=== PATIENT | male | born 1990 | race African-American/Black ===

== ENCOUNTER 2017-10-09 21:54 | Emergency (ER) | payer OTHER, BC ==
[2017-10-09] MEDS ORDERED: ONDANSETRON ODT 4 MG TAB.RAPDIS. (22:31)
[2017-10-09] MEDS: IBUPROFEN 800 MG TABLET. PO (23:00)
[2017-10-09] MEDS: HYDROcodone/APAP 5/325MG 1 TAB TABLET PO (23:00)
[2017-10-09] MEDS: ONDANSETRON ODT 4 MG TAB.RAPDIS. PO (23:00)
== END 2017-10-09 23:10 | disposition home or self-care (01) ==
LOC: ER 21:54
DX: S39.012A Strain of muscle, fascia and tendon of lower back, initial encounter (principal); V43.52XA Car driver injured in collision with other type car in traffic accident, initial encounter; Y93.I9 Activity, other involving external motion; Y92.410 Unspecified street and highway as the place of occurrence of the external cause; Y99.8 Other external cause status
CPT/HCPCS: 72131; 99284-25; Q0162

== ENCOUNTER 2018-10-02 11:28 | Emergency (ER) | payer BC, OTHER ==
[~2018-10-02] VITALS: Ht 175.3 cm; Wt 102.1 kg
[~2018-10-02 11:28] MED LIST: HYDR-3164 PO; IBUP-1060 PO
[2018-10-02] MEDS ORDERED: LIDO:MAALOX 1:1 20 ML SINGLE DOSE. PO PRN (12:30)
--- NOTE | 2018-10-02 12:57 | RAD ---
Portable chest, 10/02/2018: History: Upper abdominal and chest pain The heart size and pulmonary vascularity are normal. The lungs are clear. There is no evidence of pleural fluid. IMPRESSION: No acute cardiopulmonary abnormality is detected.
[2018-10-02 13:13] LABS: BASO % 0 % (0-3); EOS % 1 % (0-3); HEMATOCRIT 45.9 % (39.0-53.0); HEMOGLOBIN 15.1 g/dL (13.0-17.5); LYMPH # 1.1 x10^3/uL (1.0-4.8); LYMPH % 26 % (24-48); MEAN CORPUSCULAR HEMOGLOBIN 27 pg (25-35); MEAN CORPUSCULAR HGB CONC 33 g/dL (31-37); MEAN CORPUSCULAR VOLUME 82 fL (79-100); MONO # 0.5 x10^3/uL (0.0-1.1); MONO % 11 % (0-9); NEUT # 2.7 x10^3uL (1.8-7.7); NEUT % 62 % (31-73); PLATELET COUNT 271 x10^3/uL (140-400); RED BLOOD COUNT 5.63 x10^6/uL (4.30-5.70); RED CELL DISTRIBUTION WIDTH 14.7 % (11.5-14.5); WHITE BLOOD COUNT 4.3 x10^3/uL (4.0-11.0)
--- NOTE | 2018-10-02 13:13 | EKG ---
[facility] [address] [place] [address] Test Date: 2018-10-02 Test Time: 12:44:08 Pat Name: REGINA SNOWDEN Department: Room: Gender: M [employer]: : 1990 Requested By: GUICHO CHEW Order Number: [id number] Reading MD: Eddie Cross Measurements Intervals [place] Rate: 68 P: 24 IN: 186 QRS: 45 QRSD: 82 T: 0 QT: 376 QTc: 404 Interpretive Statements SINUS RHYTHM NON SPECIFIC ST-T ABNORMALITY (ELEVATION) OTHERWISE NORMAL ECG No previous ECG available for comparison Electronically Signed On 10-07-2018 15:17:04 ENTRY CLERK by Eddie Cross
--- NOTE | 2018-10-02 13:23 | PHYS DOC ---
Past Medical History Past Medical History: No Pertinent History Past Surgical History: Other Additional Past Surgical Histo: ARTHROSCOPY OF BILATERAL KNEES AND FOOT. Alcohol Use: None Drug Use: None Adult General Chief Complaint Chief Complaint: GI PROBLEM HPI HPI 28-year-old male presenting to the emergency department today with epigastric abdominal pain for the past 2 days. He's had one episode of nonbloody nonbilious emesis. His pain is a sharp shooting pain that does not radiate and has no alleviating or exacerbating factors. It is not worse or better with food. Patient does not have diabetes hypertension hyperlipidemia. Nonsmoker. He denies unilateral leg swelling hemoptysis personal or family history of blood clotting disorders or recent immobilization. Review of systems is positive for intermittent chest pain, negative for fevers chills or changes in bowel or bladder habits. He has intermittently felt mildly nauseous. All other review of systems is negative unless otherwise noted in history of present illness. ED course: 28-year-old male presenting to the emergency department today with epigastric abdominal pain with intermittent nausea. On arrival the patient's vital signs are within normal limits. EKG obtained and reviewed by myself shows sinus rhythm with a regular rate. No previous EKG for comparison. ST segments show mild elevation in the lateral leads with upwards concavity. Not suggestive of ACS. Nonspecific T-wave inversion in lead 3. Abdomen is soft and nontender. Negative McBurney's point. Negative Mendoza sign. Blood work sent. Chest x-ray obtained which was unremarkable. Ultrasound of the gallbladder is negative for acute pathology. Workup here is unremarkable.The patient has been examined and was not found to have an emergency medical condition. The patient was then discharged home in stable condition to follow up with their primary care physician over the next 1-2 days. They were to return if their symptoms worsened or if they were concerned for any reason. They were also instructed to return to the emergency department if they were unable to get the recommended and appropriate follow-up. [id number] discharge instructions and return precautions were given. Patient's questions were answered to their satisfaction. Patient is comfortable with plan. Review of Systems Review of Systems SEE ABOVE. Current Medications Current Medications Current Medications Medications (Trade) Dose Ordered Sig/Froylan Start Time Stop Time Status Last Admin Dose Admin Multi-Ingredient Mouthwash/Gargle (Gi Cocktail) 20 ml PRN Q15MIN PRN 10/02/18 12:30 10/02/18 12:37 20 ML Allergies Allergies Allergies Coded Allergies Type Severity Reaction Last Updated Verified No Known Drug Allergies 10/09/17 No Physical Exam Physical Exam SEE ABOVE Constitutional: Well developed, well nourished, no acute distress, non-toxic appearance. [] HENT: Normocephalic, atraumatic, bilateral external ears normal, oropharynx moist, no oral exudates, nose normal. [] Eyes: PERRLA, EOMI, conjunctiva normal, no discharge. [] Neck: Normal range of motion, no tenderness, supple, no stridor. [] Cardiovascular:Heart rate regular rhythm, no murmur [] Lungs & Thorax: Bilateral breath sounds clear to auscultation [] Abdomen: Bowel sounds normal, soft, no tenderness, no masses, no pulsatile masses. [] Skin: Warm, dry, no erythema, no rash. [] Back: No tenderness, no CVA tenderness. [] Extremities: No tenderness, no cyanosis, no clubbing, ROM intact, no edema. [] Neurologic: Alert and oriented X 3, normal motor function, normal sensory function, no focal deficits noted. [] Psychologic: Affect normal, judgement normal, mood normal. [] Current Patient Data Vital Signs Vital Signs Date Time Temp Pulse Resp B/P (MAP) Pulse Ox O2 Delivery O2 Flow Rate FiO2 10/02/18 12:00 98.3 73 14 134/91 (105) 100 Room Air 98.3 Lab Values Laboratory Tests Test 10/02/18 12:56 White Blood Count 4.3 x10^3/uL (4.0-11.0) Red Blood Count 5.63 x10^6/uL (4.30-5.70) Hemoglobin 15.1 g/dL (13.0-17.5) Hematocrit 45.9 % (39.0-53.0) Mean Corpuscular Volume 82 fL (79-100) Mean Corpuscular Hemoglobin 27 pg (25-35) Mean Corpuscular Hemoglobin Concent 33 g/dL (31-37) Red Cell Distribution Width 14.7 % (11.5-14.5) H Platelet Count 271 x10^3/uL (140-400) Neutrophils (%) (Auto) 62 % (31-73) Lymphocytes (%) (Auto) 26 % (24-48) Monocytes (%) (Auto) 11 % (0-9) H Eosinophils (%) (Auto) 1 % (0-3) Basophils (%) (Auto) 0 % (0-3) Neutrophils # (Auto) 2.7 x10^3uL (1.8-7.7) Lymphocytes # (Auto) 1.1 x10^3/uL (1.0-4.8) Monocytes # (Auto) 0.5 x10^3/uL (0.0-1.1) Eosinophils # (Auto) 0.0 x10^3/uL (0.0-0.7) Basophils # (Auto) 0.0 x10^3/uL (0.0-0.2) Sodium Level 140 mmol/L (136-145) Potassium Level 4.3 mmol/L (3.5-5.1) Chloride Level 105 mmol/L (98-107) Carbon Dioxide Level 28 mmol/L (21-32) Anion Gap 7 (6-14) Blood Urea Nitrogen 12 mg/dL (8-26) Creatinine 1.3 mg/dL (0.7-1.3) Estimated GFR (Cockcroft-Gault) 80.7 Glucose Level 95 mg/dL (70-99) Calcium Level 9.4 mg/dL (8.5-10.1) Total Bilirubin 0.8 mg/dL (0.2-1.0) Direct Bilirubin 0.2 mg/dL (0.0-0.2) Aspartate Amino Transferase (AST) 33 U/L (15-37) Alanine Aminotransferase (ALT) 62 U/L (16-63) Alkaline Phosphatase 78 U/L (46-116) Troponin I Quantitative < 0.017 ng/mL (0.000-0.055) Total Protein 7.1 g/dL (6.4-8.2) Albumin 3.7 g/dL (3.4-5.0) Lipase 77 U/L (73-393) Laboratory Tests 10/02/18 12:56 Laboratory Tests 10/02/18 12:56 EKG EKG [] Radiology/Procedures Radiology/Procedures [] Course & Med Decision Making Course & Med Decision Making Pertinent Labs and Imaging studies reviewed. (See chart for details) [] Dragon Disclaimer Dragon Disclaimer This electronic medical record was generated, in whole or in part, using a voice recognition dictation system. Departure Departure Impression: Primary Impression: Epigastric abdominal pain Disposition: HOME, SELF-CARE Condition: STABLE Referrals: UNKNOWN PCP NAME (PCP) Patient Instructions: Abdominal Pain Additional Instructions: Thank you for allowing us to participate in your care today. Return to the emergency department you have any new or worsening symptoms, or if you are concerned for any reason. Return to emergency department if you have any new or concerning symptoms including but not limited to fever, chills, nausea, vomiting, intractable pain, any new rashes, chest pain, shortness of air , uncontrolled bleeding, difficulty breathing, and/or vision loss. Follow up with your primary care physician within 1-2 days. Call your Primary Doctor tomorrow and inform them of your visit today. If you do not have a primary care provider we are happy to provide you with a list of our primary care providers contact information. This condition should be evaluated by your primary care physician and any recommended consulting services for continued management within 2 days after discharge. If at any time, you are having difficulty getting into your primary care doctor or a specialist, return to the emergency department. Scripts Famotidine (PEPCID) 40 Mg Tablet 40 MG PO HS, #14 TAB 0 Refills Prov: GUICHO CHEW MD 10/02/18 GUICHO CHEW MD Oct 02, 2018 13:23
[2018-10-02 13:26] LABS: CALCIUM 9.4 mg/dL (8.5-10.1); CREATININE 1.3 mg/dL (0.7-1.3); GFR 80.7; POTASSIUM 4.3 mmol/L (3.5-5.1)
[2018-10-02 13:32] LABS: ALBUMIN 3.7 g/dL (3.4-5.0); DIRECT BILIRUBIN 0.2 mg/dL (0.0-0.2); TOTAL BILIRUBIN 0.8 mg/dL (0.2-1.0); TOTAL PROTEIN 7.1 g/dL (6.4-8.2)
--- NOTE | 2018-10-02 13:58 | RAD ---
Limited abdominal ultrasound History: RUQ PAIN Findings: Some structures are poorly visualized due to overlying bowel gas. Aorta: Poorly seen Inferior vena cava: Poorly seen Pancreas: Poorly seen Liver: Unremarkable and not enlarged Gallbladder: No evidence of cholelithiasis, gallbladder wall thickening or pericholecystic fluid. Bile ducts: No evidence of dilatation Right kidney: 10.1 cm length. No evidence of hydronephrosis. Impression: 1. Limited visualization of midline structures due to overlying bowel gas. 2. No significant sonographic abnormality is identified. Electronically signed by: Dann Anne MD (10/02/2018 12:59 PM) [id number]
[2018-10-02] MEDS ORDERED: FAMO40TA57 PO (14:28)
[2018-10-02 14:31] VITALS: BP 132/82
--- NOTE | 2018-10-08 08:41 | EKG ---
[facility] [address] [place] [address] Test Date: 2018-10-02 Test Time: 13:38:40 Pat Name: REGINA SNOWDEN Department: Room: Gender: M [employer]: : 1990 Requested By: GUICHO CHEW Order Number: [id number] Reading MD: Measurements Intervals [place] Rate: 67 P: 24 OR: 186 QRS: 39 QRSD: 80 T: 4 QT: 378 QTc: 402 Interpretive Statements SINUS RHYTHM NON SPECIFIC ST-T ABNORMALITY (ELEVATION) OTHERWISE NORMAL ECG No previous ECG available for comparison
== END 2018-10-02 15:12 | disposition home or self-care (01) ==
LOC: ER 11:28
DX: R10.13 Epigastric pain (principal); R11.2 Nausea with vomiting, unspecified
CPT/HCPCS: 36415; 71045; 76705; 80048; 80076; 83690; 84484; 85025; 93005; 99284

== ENCOUNTER 2019-01-28 12:06 | Emergency (ER) | payer BC ==
[~2019-01-28] VITALS: Ht 172.7 cm; Wt 102.1 kg
[~2019-01-28 12:06] MED LIST changes: +FAMO40TA57 PO
[2019-01-28] MEDS ORDERED: IV NORMAL SALINE 1000ML BAG 1,000 ML IV SCH (12:58)
[2019-01-28] MEDS ORDERED: FAMOTIDINE 20 MG/2 ML VIAL IVP ONE (13:00)
[2019-01-28] MEDS ORDERED: ONDANSETRON PF 4 MG/2 ML VIAL. IV ONE (13:00)
[2019-01-28 13:40] LABS: BASO % 0 % (0-3); EOS # 0.1 x10^3/uL (0.0-0.7); EOS % 2 % (0-3); HEMATOCRIT 46.7 % (39.0-53.0); HEMOGLOBIN 14.9 g/dL (13.0-17.5); LYMPH % 16 % (24-48); MEAN CORPUSCULAR HEMOGLOBIN 26 pg (25-35); MEAN CORPUSCULAR HGB CONC 32 g/dL (31-37); MEAN CORPUSCULAR VOLUME 82 fL (79-100); MONO # 0.8 x10^3/uL (0.0-1.1); MONO % 12 % (0-9); NEUT # 4.6 x10^3uL (1.8-7.7); NEUT % 70 % (31-73); PLATELET COUNT 262 x10^3/uL (140-400); RED BLOOD COUNT 5.71 x10^6/uL (4.30-5.70); RED CELL DISTRIBUTION WIDTH 15.2 % (11.5-14.5); WHITE BLOOD COUNT 6.6 x10^3/uL (4.0-11.0)
[2019-01-28 13:49] LABS: CALCIUM 9.2 mg/dL (8.5-10.1); CREATININE 1.2 mg/dL (0.7-1.3); GFR 88.6; POTASSIUM 4.2 mmol/L (3.5-5.1); PROTHROMBIN TIME PATIENT 14.8 SEC (11.7-14.0)
[2019-01-28 13:55] LABS: ALBUMIN 4.1 g/dL (3.4-5.0); ALBUMIN/GLOBULIN RATIO 1.5 (1.0-1.7); TOTAL PROTEIN 6.9 g/dL (6.4-8.2)
[2019-01-28] MEDS ORDERED: KETOROLAC 30 MG/ML VIAL. IV ONE (14:30)
[2019-01-28] MEDS ORDERED: RANI-376 PO (14:30)
[2019-01-28] MEDS ORDERED: ONDA4TAB7 PO (14:30)
--- NOTE | 2019-01-28 14:31 | PHYS DOC ---
Past Medical History Past Medical History: No Pertinent History Past Surgical History: Other Additional Past Surgical Histo: ARTHROSCOPY OF BILATERAL KNEES AND FOOT. Alcohol Use: None Drug Use: None Adult General Chief Complaint Chief Complaint: ABDOMINAL PAIN HPI HPI Patient is a 28 year old male who presents with complaining of nausea and vomiting blood. Patient complaining of 4 episodes of vomiting today and had bright blood in the last episode of vomiting. Patient also complaining of epig astric sharp pain without radiation. Patient denies diarrhea, urinary symptoms, fever and chills, generalized weakness or palpitation and history of vomiting blood and using alcohol. Patient also complaining of pruritic generalized skin lesions for more than 2 months and was seen by a physician but didn't get better. Review of Systems Review of Systems Constitutional: Denies fever or chills [] Eyes: Denies change in visual acuity, redness, or eye pain [] HENT: Denies nasal congestion or sore throat [] Respiratory: Denies cough or shortness of breath [] Cardiovascular: No additional information not addressed in HPI [] GI: Reports abdominal pain, nausea, vomiting, denies bloody stools or diarrhea [] : Denies dysuria or hematuria [] Musculoskeletal: Denies back pain or joint pain [] Integument: Reports rash and skin lesion Neurologic: Denies headache, focal weakness or sensory changes [] Endocrine: Denies polyuria or polydipsia [] All other systems were reviewed and found to be within normal limits, except as documented in this note. Current Medications Current Medications Current Medications Medications (Trade) Dose Ordered Sig/Froylan Start Time Stop Time Status Last Admin Dose Admin Famotidine (Pepcid Vial) 20 mg 1X ONCE 01/28/19 13:00 01/28/19 13:13 DC 01/28/19 13:40 20 MG Ketorolac Tromethamine (Toradol 30mg Vial) 30 mg 1X ONCE 01/28/19 14:30 01/28/19 14:31 DC 01/28/19 14:43 30 MG Ondansetron HCl (Zofran) 4 mg 1X ONCE 01/28/19 13:00 01/28/19 13:13 DC 01/28/19 13:40 4 MG Sodium Chloride 1,000 ml @ 1,000 mls/hr Q1H 01/28/19 12:58 01/28/19 13:57 DC 01/28/19 13:48 1,000 MLS/HR Allergies Allergies Allergies Coded Allergies Type Severity Reaction Last Updated Verified No Known Drug Allergies 10/09/17 No Physical Exam Physical Exam Constitutional: Well developed, well nourished, mild distress, non-toxic appearance. [] HENT: Normocephalic, atraumatic, oropharynx moist. Eyes: PERRLA, EOMI, conjunctiva normal, no discharge. [] Neck: Normal range of motion, no tenderness, supple, no stridor. [] Cardiovascular:Heart rate regular rhythm, no murmur [] Lungs & Thorax: Bilateral breath sounds clear to auscultation [] Abdomen: Bowel sounds normal, soft, no tenderness, no masses, no pulsatile masses. [] Skin: Warm, dry, no erythema, extensive eczematic rash in upper and Lower Extremities Back: No tenderness, no CVA tenderness. [] Extremities: No tenderness, no cyanosis, no clubbing, ROM intact, no edema. [] Neurologic: Alert and oriented X 3, normal motor function, normal sensory function, no focal deficits noted. [] Psychologic: Affect normal, judgement normal, mood normal. [] Current Patient Data Vital Signs Vital Signs Date Time Temp Pulse Resp B/P (MAP) Pulse Ox O2 Delivery O2 Flow Rate FiO2 01/28/19 14:48 81 16 141/76 (97) 100 Room Air 01/28/19 12:51 98.3 98.3 Lab Values Laboratory Tests Test 01/28/19 13:28 White Blood Count 6.6 x10^3/uL (4.0-11.0) Red Blood Count 5.71 x10^6/uL (4.30-5.70) H Hemoglobin 14.9 g/dL (13.0-17.5) Hematocrit 46.7 % (39.0-53.0) Mean Corpuscular Volume 82 fL (79-100) Mean Corpuscular Hemoglobin 26 pg (25-35) Mean Corpuscular Hemoglobin Concent 32 g/dL (31-37) Red Cell Distribution Width 15.2 % (11.5-14.5) H Platelet Count 262 x10^3/uL (140-400) Neutrophils (%) (Auto) 70 % (31-73) Lymphocytes (%) (Auto) 16 % (24-48) L Monocytes (%) (Auto) 12 % (0-9) H Eosinophils (%) (Auto) 2 % (0-3) Basophils (%) (Auto) 0 % (0-3) Neutrophils # (Auto) 4.6 x10^3uL (1.8-7.7) Lymphocytes # (Auto) 1.0 x10^3/uL (1.0-4.8) Monocytes # (Auto) 0.8 x10^3/uL (0.0-1.1) Eosinophils # (Auto) 0.1 x10^3/uL (0.0-0.7) Basophils # (Auto) 0.0 x10^3/uL (0.0-0.2) Prothrombin Time 14.8 SEC (11.7-14.0) H Prothrombin Time INR 1.2 (0.8-1.1) H PTT 31 SEC (24-38) Sodium Level 139 mmol/L (136-145) Potassium Level 4.2 mmol/L (3.5-5.1) Chloride Level 104 mmol/L (98-107) Carbon Dioxide Level 28 mmol/L (21-32) Anion Gap 7 (6-14) Blood Urea Nitrogen 22 mg/dL (8-26) Creatinine 1.2 mg/dL (0.7-1.3) Estimated GFR (Cockcroft-Gault) 88.6 BUN/Creatinine Ratio 18 (6-20) Glucose Level 88 mg/dL (70-99) Calcium Level 9.2 mg/dL (8.5-10.1) Total Bilirubin 1.0 mg/dL (0.2-1.0) Aspartate Amino Transferase (AST) 26 U/L (15-37) Alanine Aminotransferase (ALT) 31 U/L (16-63) Alkaline Phosphatase 83 U/L (46-116) Total Protein 6.9 g/dL (6.4-8.2) Albumin 4.1 g/dL (3.4-5.0) Albumin/Globulin Ratio 1.5 (1.0-1.7) Lipase 104 U/L (73-393) Laboratory Tests 01/28/19 13:28 Laboratory Tests 01/28/19 13:28 EKG EKG [] Radiology/Procedures Radiology/Procedures [] Course & Med Decision Making Course & Med Decision Making Pertinent Labs reviewed. (See chart for details) Evaluation of patient in ER showed 28-year-old male patient with complaining of 4 episodes of vomiting with bright blood in the last episodes. Patient also complaining of abdominal pain. Patient had unremarkable physical exam and labs. Patient treated with IV fluid and Zofran and tolerated oral intake. Patient was advised to not take solid food today. Patient has had chronic generalized rash and was advised to follow-up with a division manager. discharge: I've spoken with the patient and/or caregivers. I've explained the patient's condition, diagnosis and treatment plan based on information available to me at this time. I've answered the patient's and/or caregivers questions and addressed any concerns. The patient and/or caregivers have a good understanding the patient's diagnosis, condition and treatment plan as can be expected at this point. Vital signs have been stabilized. The patient's condition is stable for discharge from the emergency department. The patient will pursue further outpatient evaluation with her primary care provider or other designated consulting physician as outlined in the discharge instructions. Patient and/or caregivers are agreeable to this plan of care and follow-up instructions have been explained in detail. The patient and/or caregivers have received these instructions in written format and expressed understanding of these discharge instructions. The patient and her caregivers are aware that if any significant change in condition or worsening of symptoms should prompt him to immediately return to this of the closest emergency department. If an emergent department is not readily available I would encourage him to call 911. Rickey Disclaimer Rickey Disclaimer This electronic medical record was generated, in whole or in part, using a voice recognition dictation system. Departure Departure Impression: Primary Impression: Acute gastritis Additional Impression: Chronic pruritic rash in adult Disposition: 01 HOME, SELF-CARE (at 1445) Condition: IMPROVED Referrals: NO PCP (PCP) Patient Instructions: Gastritis, Adult Additional Instructions: Drink plenty of liquids Follow-up with your primary care physician in 3-5 days Return to ER if not getting better Scripts Hydroxyzine Hcl (HYDROXYZINE HCL) 25 Mg Tablet 1 TAB PO TID PRN for itching, #30 TAB Prov: MARTÍNEZ SAALS MD 01/28/19 Ondansetron Hcl (ZOFRAN) 4 Mg Tablet 1 TAB PO PRN Q6-8HRS for nausea, #12 TAB Prov: MARTÍNEZ SALAS MD 01/28/19 Ranitidine Hcl (ZANTAC) 150 Mg Tablet 1 TAB PO BID for dyspepsia, #14 TAB 0 Refills Prov: MARTÍNEZ SALAS MD 01/28/19 Problem Qualifiers Primary Impression: Acute gastritis Gastritis type: unspecified gastritis Gastritis bleeding: presence of bleeding unspecified Qualified Codes: K29.00 - Acute gastritis without bleeding MARTÍNEZ SALAS MD Jan 28, 2019 14:31
[2019-01-28 14:48] VITALS: BP 141/76
[2019-01-28] MEDS ORDERED: HYDR25TA PO (15:06)
== END 2019-01-28 15:10 | disposition home or self-care (01) ==
LOC: ER 12:06
DX: K29.00 Acute gastritis without bleeding (principal); L29.8 Other pruritus
CPT/HCPCS: 36415; 80053; 83690; 85025; 85610; 85730; 96361; 96374; 96375; 99284; J1885; J2405; J3490; J7030